=== PATIENT | female | born 1985 | race Caucasian/White ===

== ENCOUNTER 2017-03-08 11:07 | Emergency (ER) | payer BC ==
[2017-03-08 11:29] VITALS: RESP 16; TEMP 97
[2017-03-08] MEDS ORDERED: ORPHENADRINE 30 MG/ML 2 ML VIAL IM STA (12:39)
[2017-03-08] MEDS ORDERED: KETOROLAC 60 MG/2 ML VIAL IM STA (12:39)
--- NOTE | 2017-03-08 12:51 | ED ---
Back Pain HPI - General Chief Complaint: Back Pain/Injury Stated Complaint: lower back pain Time Seen by Provider: 03/08/17 12:13 Source: patient, RN notes reviewed Limitations: no limitations - History of Present Illness Initial Comments: 31-year-old female presents to the emergency Department chief complaint of low back pain. Patient states that she went down to picking tech today and she felt some irritation in her back when she went down to picking tech her 9-month-old and felt a pop in her back and since he the low back that radiates into the left forearm. Patient has a left lumbar bladder function with this. Patient states any real movement or certain twisting makes the pain worse. Patient states there hasn't been any fever chills nausea vomiting with this. He says any loss of bowel or bladder function. Patient states that she was concerned due to her worsening and continued pain so she thought that she should be evaluated. Patient denies any recent fever, chills, shortness of breath, chest pain, abdominal pain, nausea vomiting, numbness or tingling, dysuria or hematuria, constipation or diarrhea, headaches or visual changes, or any other current symptoms. - Related Data Home Medications Medication Instructions Recorded Confirmed Pnv with Ca,No.72/Iron/FA 1 tab PO DAILY 07/04/14 10/07/14 [ Plus Multivitamin Tab] Previous Rx's Medication Instructions Recorded Ibuprofen [Motrin] 600 mg PO Q6HR PRN #60 tab 05/14/16 Ibuprofen [Motrin] 600 mg PO Q6HR PRN #20 tab 03/08/17 Orphenadrine [Norflex] 100 mg PO Q12H #10 tablet.er 03/08/17 Allergies Allergy/AdvReac Type Severity Reaction Status Date / Time No Known Allergies Allergy Verified 03/08/17 11:25 Review of Systems ROS Statement: Those systems with pertinent positive or pertinent negative responses have been documented in the HPI. ROS Other: All systems not noted in ROS Statement are negative. Past Medical History Past Medical History: No Reported History History of Any Multi-Drug Resistant Organisms: None Reported Past Surgical History: No Surgical Hx Reported Past Anesthesia/Blood Transfusion Reactions: No Reported Reaction Past Psychological History: No Psychological Hx Reported Smoking Status: Never smoker Past Alcohol Use History: None Reported Past Drug Use History: None Reported - Past Family History Mother Family Medical History: No Reported History General Exam Limitations: no limitations General appearance: alert, in no apparent distress Head exam: Present: atraumatic, normocephalic, normal inspection ENT exam: Present: normal exam, mucous membranes moist Neck exam: Present: normal inspection. Absent: tenderness, meningismus, lymphadenopathy Respiratory exam: Present: normal lung sounds bilaterally. Absent: respiratory distress, wheezes, rales, rhonchi, stridor Cardiovascular Exam: Present: regular rate, normal rhythm, normal heart sounds. Absent: systolic murmur, diastolic murmur, rubs, gallop, clicks Extremities exam: Present: normal inspection, full ROM, normal capillary refill. Absent: tenderness, pedal edema, joint swelling, calf tenderness Back exam: Present: normal inspection, full ROM. Absent: tenderness Neurological exam: Present: alert, oriented X3 Psychiatric exam: Present: normal affect, normal mood Skin exam: Present: warm, dry, intact, normal color. Absent: rash Course Vital Signs 03/08/17 11:25 Temperature 97 F L Pulse Rate 93 Respiratory 16 Rate Blood Pressure 162/130 O2 Sat by Pulse 99 Oximetry Medical Decision Making - Medical Decision Making 31 yo female presents with cc of what appears to be a lumbar strain. At this time patient will be placed on motrin and norflex for home. We discussed return parameters, follow up and all questions. Patient stated that she understood and is in agreement with the plan. All questions have been answered. Patient will be discharged home. - Lab Data Lab Results 03/08/17 Range/Units 12:25 Urine HCG, Qual Not Detected (Not Detectd) - Radiology Data Radiology results: report reviewed, image reviewed Disposition Clinical Impression: Lumbar strain Disposition: HOME SELF-CARE Condition: Stable Instructions: Low Back Strain (ED), Lower Back Exercises (ED) Additional Instructions: Please use medication as discussed. Please follow up with family doctor if symptoms have not improved over the next two days. Please return to the emergency room if your symptoms increase or worsen or for any other concerns. Prescriptions: Ibuprofen [Motrin] 600 mg PO Q6HR PRN #20 tab PRN Reason: Pain Orphenadrine [Norflex] 100 mg PO Q12H #10 tablet.er Referrals: Linda Berman MD [STAFF PHYSICIAN] - 1-2 days Time of Disposition: 13:14
--- NOTE | 2017-03-08 13:13 | XR ---
EXAMINATION TYPE: XR lumbar spine 2 or 3V DATE OF EXAM: 03/08/2017 COMPARISON: NONE HISTORY: Pain TECHNIQUE: 3 views FINDINGS: Vertebra have normal spacing and alignment. Posterior elements are intact. Sacroiliac joint s are normal. IMPRESSION: Normal lumbar spine
[2017-03-08 13:26] VITALS: BP 97/47; PULSE 55
== END 2017-03-08 13:26 | disposition home or self-care (01) ==
LOC: EC 11:07
DX: S39.012A Strain of muscle, fascia and tendon of lower back, initial encounter (principal); X50.1XXA Overexertion from prolonged static or awkward postures, initial encounter
CPT/HCPCS: 81025; 72100; 99283; 96372 ×2; J2360; J1885

== ENCOUNTER → 2017-06-04 | Outpatient (CLI) | payer BC ==
[2017-06-04 12:55] LABS: CH 32.7; CHCM 33.9; HCT 41.4 % (34.0-46.0); HDW 2.72; HGB 14.1 gm/dL (11.4-16.0); Mean Platelet Volume 7.2; RBC 4.26 m/uL (3.80-5.40); RDW 12.6 % (11.5-15.5); WBC 6.8 k/uL (3.8-10.6)
[2017-06-04 13:05] LABS: Glucose 72 mg/dL (74-99); Non-African American GFR(MDRD) >60 (>60 ml/min/1.73 sqM)
[2017-06-04 19:02] LABS: Treponemal Ab Non-Reactive (Non-Reactive)
== END | disposition home or self-care (01) ==
LOC: LABWHC1 12:10
PROVIDERS: ATTEND Obstetrics & Gynecology
DX: O26.811 Pregnancy related exhaustion and fatigue, first trimester (principal); Z3A.00 Weeks of gestation of pregnancy not specified
CPT/HCPCS: 36415; 82565; 82947; 85027; 86762; 86780; 86850; 86900; 86901; 87340; 87390

== ENCOUNTER 2017-12-31 09:22 | Outpatient (CLI) | payer BC ==
[2017-12-31 12:13] VITALS: BP 121/68; PULSE 86; RESP 18; TEMP 97.7
--- NOTE | 2018-01-01 05:53 | P.MSEPDOC ---
Presenting Problems - Arrival Data Date of Arrival on Unit: 12/31/17 Time of Arrival on Unit: 09:22 Mode of Transport: Ambulatory - Complaint OB-Reason for Admission/Chief Complaint: Possible Onset of Labor Medical History - Information : 4 Para: 2 Term: 2 : 0 Abortions: Spontaneous or Elective: 1 Number of Living Children: 2 - Gestational Age Gestational Age by ANDRÉS (wks/days): 38 Weeks and 6 Days Review of Systems - Review of Systems Constitutional: No problems Breast: No problems ENT: No problems Cardiovascular: No problems Respiratory: No problems Gastrointestinal: No problems Genitourinary: No problems Musculoskeletal: No problems Neurological: No problems Skin: No problems Vital Signs - Temperature Temperature: 97.7 F Temperature Source: Temporal Artery Scan - Pulse Brachial Pulse Rate: 86 Pulse Assessment Method: Automatic Cuff - Respirations Respiratory Rate: 18 Oxygen Delivery Method: Room Air - Blood Pressure Right Arm Blood Pressure: 121/68 Blood Pressure Mean: 85 Blood Pressure Source: Automatic Cuff Medical Screen Scoring (Pre) - Cervical Exam Dilation: 1-3 cm = 1 Membranes: Intact - Uterine Contractions Frequency: > 5 minutes apart = 1 - Maternal Vital Signs Maternal Temperature: N/A Signs of Preeclampsia: N/A Maternal Respirations: N/A - Pain Assessment Pain Scale Used: Numeric (1 - 10) Pain Intensity: 3 - Maternal Trauma Maternal Trauma: N/A - Assessment Baseline FHR: 150 Heart Rate - NICHD Category: Category I (Normal) = 0 NST: Reactive - Total Score Total Score (Pre): 2 - Level of Risk Level of Risk: Low (0-5) Physician Notification (Pre) - Physician Notified Physician Notified Date: 12/31/17 Physician Notified Time: 10:15 Physician/Practitioner Notifed:: rachael Spoke With: rachael - Notification Comment Comment: may discharge home Disposition - Disposition OB Disposition: Triage, Discharge to home, Written follow up instructions reviewed Discharge Date: 12/31/17 Discharge Time: 10:25 I agree with the RN Medical Screening Exam: Yes Risk & Benefit of care provided described in d/c instruction: Yes Diagnosis: FALSE LABOR AT OR AFTER 37 COMPLETED WEEKS OF GESTATION
== END 2017-12-31 10:25 | disposition home or self-care (01) ==
LOC: FBPOP 09:22
PROVIDERS: ATTEND Obstetrics & Gynecology
DX: O47.1 False labor at or after 37 completed weeks of gestation (principal); Z3A.38 38 weeks gestation of pregnancy
CPT/HCPCS: 59025; 84112; 99213

== ENCOUNTER 2018-01-05 06:00 | Inpatient (IN) | payer BC ==
--- NOTE | 2018-01-04 16:08 | P.HPOB ---
History of Present Illness H&P Date: 01/04/18 Chief Complaint: Induction of labor This is a 32 y.o. female, 4, para 2, with an estimated date of confinement of 01/08/2018, estimated gestational age of 39-4/7 weeks, who presents to labor and delivery for induction of labor. She has been feeling frequent contractions and pressure. course has been essentially uncomplicated. labs: GC/Chlamydia-neg Hepatitis B surface antigen-neg HIV-NR Rubella-immune Syphilis antibody-neg Random glucose-72 Hemoglobin-14.1 Blood type-A+ Antibody screen-neg [id number]-tab 1 hr. GTT-118 GBS-neg OB Hx: . Hx 2 vaginal deliveries at term. 1 miscarriage. 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 Review of Systems Constitutional: Denies chills, Denies fever Eyes: denies blurred vision, denies pain Ears, nose, mouth and throat: Denies headache, Denies sore throat Cardiovascular: Denies chest pain, Denies shortness of breath Respiratory: Denies cough Gastrointestinal: Reports abdominal pain (irregular contractions) Genitourinary: Reports pelvic pain, Reports Musculoskeletal: Reports low back pain Neurological: Denies numbness, Denies weakness Psychiatric: Denies anxiety, Denies depression Past Medical History Past Medical History: No Reported History History of Any Multi-Drug Resistant Organisms: None Reported Past Surgical History: No Surgical Hx Reported Past Anesthesia/Blood Transfusion Reactions: No Reported Reaction Past Psychological History: No Psychological Hx Reported Smoking Status: Never smoker Past Alcohol Use History: None Reported Past Drug Use History: None Reported - Past Family History Mother Family Medical History: No Reported History Medications and Allergies Home Medications Medication Instructions Recorded Confirmed Type Pnv with Ca,No.72/Iron/FA 1 tab PO DAILY 07/04/14 12/31/17 History [ Plus Multivitamin Tab] Allergies Allergy/AdvReac Type Severity Reaction Status Date / Time No Known Allergies Allergy Verified 12/31/17 09:39 Exam Osteopathic Statement: *. No significant issues noted on an osteopathic structural exam other than those noted in the History and Physical/Consult. HEENT: Within normal limits Heart: Regular rate and rhythm Lungs: clear to auscultation bilaterally Abdomen: Cervix: 3 cm/60%/-2 heart tones: 140's by doppler Extremities: neg. Abi's. Assessment and Plan (1) 39 weeks gestation of Status: Acute Code(s): Z3A.39 - 39 WEEKS GESTATION OF SNOMED Code( s): 01594636 Plan: Proceed with oxytocin induction of labor. Expectant management.
[2018-01-05] MEDS ORDERED: OXYTOCIN 20 UNITS/1000 ML NS 1,000 ML IV SCH ×2 (06:32→13:00)
[2018-01-05] MEDS ORDERED: CARBOPROST TROMETHAMINE 250 MCG/ML 1 ML AMP IM PRN (06:32)
[2018-01-05] MEDS ORDERED: OXYTOCIN 10 UNIT/ML 1 ML VIAL IM PRN (06:32)
[2018-01-05] MEDS ORDERED: LIDOCAINE 1% (PF) 10 MG/ML (30 ML SDV) SQ PRN (06:32)
[2018-01-05] MEDS ORDERED: METHYLERGONOVINE 0.2 MG/ML 1 ML AMP IM PRN (06:32)
[2018-01-05] MEDS ORDERED: LIDOCAINE 1% 20 ML VIAL (10MG/ML) FOR IV START INTRADERMA PRN (06:32)
[2018-01-05] MEDS ORDERED: TERBUTALINE 1 MG/ML VIAL SQ PRN (06:32)
[2018-01-05] MEDS: LACTATED RINGERS 1,000 ML IV SCH ×2 (06:40→09:37)
[2018-01-05 06:58] LABS: Basophils % (A) 0 %; Eosinophils # (A) 0.1 k/uL (0-0.7); Eosinophils % (A) 1 %; HCT 34.2 % (34.0-46.0); HGB 11.7 gm/dL (11.4-16.0); Lymphocytes # (A) 1.7 k/uL (1.0-4.8); Lymphocytes % (A) 30 %; MCH 31.4 pg (25.0-35.0); MCHC 34.3 g/dL (31.0-37.0); MCV 91.6 fL (80.0-100.0); Mean Platelet Volume 8.2; Monocytes # (A) 0.3 k/uL (0-1.0); Monocytes % (A) 5 %; Neutrophils # (A) 3.5 k/uL (1.3-7.7); Neutrophils % (A) 61 %; Platelet Count 163 k/uL (150-450); Poikilocytosis Slight; RBC 3.73 m/uL (3.80-5.40); RDW 14.8 % (11.5-15.5); WBC 5.6 k/uL (3.8-10.6)
[2018-01-05 07:19] VITALS: BMI 28.3
[2018-01-05] MEDS ORDERED: fentaNYL (PF) 50 MCG/ML 5 ML AMP ONE (09:10)
[2018-01-05] MEDS ORDERED: SODIUM CHLORIDE 0.9% 100 ML BAG ONE (09:10)
[2018-01-05] MEDS ORDERED: BUPIVACAINE (PF) 0.25% 30 ML VIAL ONE (09:10)
[2018-01-05] MEDS ORDERED: BUPIVACAINE (PF) 0.25% 25 ML, fentaNYL (PF) 200 MCG in SODIUM CHLORIDE 0.9% 71 ML EPIDURAL ONE (09:37)
[2018-01-05] MEDS ORDERED: BENZOCAINE/MENTHOL SPRAY 1 GM/SPRAY AEROSOL TOPICAL PRN (12:57)
[2018-01-05] MEDS ORDERED: diphenhydrAMINE 50 MG/ML 1 ML VIAL IVP PRN ×2 (12:58)
[2018-01-05] MEDS ORDERED: HYDROCORTISONE 2.5% RECTAL CREAM 30 GM TUBE RECTAL PRN (12:58)
[2018-01-05] MEDS ORDERED: ACETAMINOPHEN TAB 325 MG TAB PO PRN (12:58)
[2018-01-05] MEDS ORDERED: LANOLIN CREAM 5 GM TUBE TOPICAL PRN (12:58)
[2018-01-05] MEDS ORDERED: SIMETHICONE 80 MG CHEWABLE PO PRN (12:58)
[2018-01-05] MEDS ORDERED: diphenhydrAMINE 25 MG CAP PO PRN (12:58)
[2018-01-05] MEDS ORDERED: diphenhydrAMINE 50 MG CAP PO PRN (12:58)
[2018-01-05] MEDS ORDERED: ZOLPIDEM 5 MG TAB PO PRN (12:58)
[2018-01-05] MEDS ORDERED: WITCH HAZEL 1 EACH MED..PAD TOPICAL PRN (12:58)
--- NOTE | 2018-01-05 13:25 | P.PROBDLV ---
Vaginal Delivery Note - . Vaginal Delivery Note: The patient progressed to complete dilation after oxytocin induction of labor and artificial rupture of membranes with clear fluid noted. She did receive epidural anesthesia. Once reaching complete dilation, she began pushing. 's head came to a crown. With one further push, the infant's head delivered across the perineum followed by the anterior shoulder. Nuchal cord times one was slightly tight and therefore doubly clamped and cut and reduced around the 's head. With one further push, the remainder the infant easily delivered and was placed on mother's abdomen. Nose and mouth were again bulb suctioned. Infant was taken to warmer for evaluation. A viable female infant was noted with scores of 8 at 1 minute and 9 at 5 minutes and infant weight of 8 lbs. 9 oz. Placenta delivered shortly thereafter, intact, with a three-vessel cord. Uterus contracted well after oxytocin was given and uterine massage was carried out. Inspection of the perineum revealed no perineal lacerations. Estimated blood loss was approximately 200 mL's. Both mother and are in stable condition.
[2018-01-05] MEDS: SENNOSIDES-DOCUSATE SODIUM 1 EACH TAB PO SCH (19:56)
[2018-01-05] MEDS: IBUPROFEN 600 MG TAB PO PRN (19:56)
[2018-01-06] MEDS: IBUPROFEN 600 MG TAB PO PRN ×2 (05:56→13:18)
--- NOTE | 2018-01-06 07:20 | P.DS ---
Providers Date of admission: 01/05/18 06:19 Expected date of discharge: 01/06/18 Attending physician: Yuki Partida Primary care physician: Stated None - Discharge Diagnosis(es) (1) 39 weeks gestation of Current Visit: No Status: Acute Hospital Course: This is a 32-year-old female 4 para 2 at 39-3/7 weeks who presented for induction of labor. She delivered vaginally a viable female infant on 2017 with scores of 8 at 1 minute and 9 at 5 minutes and weight of 8 lbs. 9 oz. Cortical cord times one was noted. Her course has been uncomplicated. She is bottle feeding. Lochia is decreasing. Pain is fairly well controlled with ibuprofen. Vital signs are stable. Abdomen soft with fundus firm and nontender. Extremities show negative Homans. Impression is status post vaginal delivery day #1. Plan is to discharge home today. Routine post instructions are given. She will be given a prescription for ibuprofen. She is advised to follow up in the office in 6 weeks for check. She is advised to call the office if she has any further questions or concerns prior to her appointment time. Procedures: Oxytocin induction of labor Spontaneous vaginal delivery of a viable female on 01/05/2018 Patient Condition at Discharge: Stable Plan - Discharge Summary New Discharge Prescriptions: New Ibuprofen [Motrin] 600 mg PO Q6HR PRN #60 tab PRN Reason: Mild Pain Or Fever >= 100.5 Continue Pnv with Ca,No.72/Iron/FA [ Plus Multivitamin Tab] 1 tab PO DAILY Discharge Medication List Pnv with Ca,No.72/Iron/FA [ Plus Multivitamin Tab] 1 tab PO DAILY [History] Ibuprofen [Motrin] 600 mg PO Q6HR PRN #60 tab 01/06/18 [Rx] Follow up Appointment(s)/Referral(s): Yuki Partida DO [Doctor of Osteopathic Medicine] - 6 Weeks Activity/Diet/Wound Care/Special Instructions: Instructions 1. Do not begin any exercise program for 3 weeks. 2. Do not resume sexual relations for 3 weeks or longer if uncomfortable. 3. You may take tub baths or showers at any time. 4. You may use tampons if desired after 3 weeks. 5. Keep the area of episiotomy (stitches) clean and dry. 6. If you are not nursing, wear a good fitting, supportive bra during the day and limit fluid intake for at least 1 week to prevent breast engorgement. 7. Call the office, [phone], within the next week to make appointment for your 6 week checkup if it has not already been made. 8. Report any of the following occurrences to the doctor promptly: a. Heavy, excessive bleeding b. Chills, fever c. Burning or frequency of urination d. Pain or redness and breasts if nursing e. Increasing pain or swelling in episiotomy (stitches). In addition to the above instructions, the following additional should be followed: 1. No heavy lifting or straining (exercising) until after 6 week checkup. 2. Keep abdominal incision clean and dry: You may wear a dressing if more comfortable. 3. Make office appointment for 10 days after going home or as instructed by her doctor. Discharge Disposition: HOME SELF-CARE
[2018-01-06 07:57] LABS: Basophils % (A) 0 %; Eosinophils # (A) 0.1 k/uL (0-0.7); Eosinophils % (A) 1 %; HGB 10.9 gm/dL (11.4-16.0); Lymphocytes # (A) 1.7 k/uL (1.0-4.8); Lymphocytes % (A) 21 %; MCH 30.9 pg (25.0-35.0); MCV 93.7 fL (80.0-100.0); Mean Platelet Volume 8.7; Monocytes # (A) 0.4 k/uL (0-1.0); Monocytes % (A) 5 %; Neutrophils # (A) 5.6 k/uL (1.3-7.7); Neutrophils % (A) 72 %; Platelet Count 145 k/uL (150-450); Poikilocytosis Slight; RBC 3.52 m/uL (3.80-5.40); RDW 14.6 % (11.5-15.5); WBC 7.8 k/uL (3.8-10.6)
[2018-01-06] MEDS: SENNOSIDES-DOCUSATE SODIUM 1 EACH TAB PO SCH (09:10)
[2018-01-06 09:12] VITALS: BP 110/70; PULSE 53; RESP 17; TEMP 97.7
== END 2018-01-06 13:15 | disposition home or self-care (01) | DRG 775 ==
LOC: 4FBP 06:19
PROVIDERS: ADMIT Obstetrics & Gynecology; ATTEND Obstetrics & Gynecology
PROC: 10907ZC Drainage of Amniotic Fluid, Therapeutic from Products of Conception, Via Natural or Artificial Opening (ICD-10-PCS; principal; 2018-01-05)
PROC: 10E0XZZ Delivery of Products of Conception, External Approach (ICD-10-PCS; 2018-01-05)
PROC: 3E033VJ Introduction of Other Hormone into Peripheral Vein, Percutaneous Approach (ICD-10-PCS; 2018-01-05)
PROC: 3E0R3NZ Introduction of Analgesics, Hypnotics, Sedatives into Spinal Canal, Percutaneous Approach (ICD-10-PCS; 2018-01-05)
PROC: 00HU33Z Insertion of Infusion Device into Spinal Canal, Percutaneous Approach (ICD-10-PCS; 2018-01-05)
DX: O69.1XX0 Labor and delivery complicated by cord around neck, with compression, not applicable or unspecified (principal); K21.9 Gastro-esophageal reflux disease without esophagitis; O99.62 Diseases of the digestive system complicating childbirth; Z3A.39 39 weeks gestation of pregnancy; Z37.0 Single live birth; Z87.59 Personal history of other complications of pregnancy, childbirth and the puerperium
CPT/HCPCS: 85025; 88307

== ENCOUNTER 2019-03-29 06:30 | Day surgery (SDC) | payer BC ==
[2019-03-23 15:12] VITALS: BMI 23.1
--- NOTE | 2019-03-28 13:02 | P.HPOB ---
History of Present Illness H&P Date: 03/28/19 Chief Complaint: Menorrhagia with irregular cycle This is a 33-year-old female 4 para 3 who presents for dilation and curettage with hysteroscopy and NovaSure endometrial ablation secondary to menorrhagia with irregular cycle. She complains of heavy irregular menses that been occurring for over a year now. Her menses last anywhere from 5-8 days and occasional spotting going on after her menses. She has to change tampons every hour for the first 4 days of her cycle. Her menses are occurring every 3-4 weeks. She would like definitive surgical treatment to control her menses. Her has had a vasectomy. I look ultrasound showed a uterus measuring 9.2 x 4.8 x 3.5 cm with an endometrial stripe thickness of 10 mm. The right ovary had a small hemorrhagic cyst measuring 2.3 cm and the left ovary appeared normal. Obstetrical history: . History of 3 vaginal deliveries. History of 1 miscarriage. Gynecologic history: No history of sexual transmitted diseases. Her has had a vasectomy. Social history: She is . She works as a middle school science teacher. Review of Systems Constitutional: Denies chills, Denies fever Eyes: denies blurred vision, denies pain Ears, nose, mouth and throat: Denies headache, Denies sore throat Cardiovascular: Denies chest pain, Denies shortness of breath Respiratory: Denies cough Gastrointestinal: Denies abdominal pain, Denies diarrhea, Denies nausea, Denies vomiting Genitourinary: Reports menorrhagia Menstruation: Reports menses variable, Reports period heavy Musculoskeletal: Denies myalgias Integumentary: Denies pruritus, Denies rash Neurological: Denies numbness, Denies weakness Psychiatric: Denies anxiety, Denies depression Endocrine: Denies fatigue, Denies weight change Hematologic/Lymphatic: Reports easy bruising Past Medical History Past Medical History: No Reported History Additional Past Medical History / Comment(s): MENSTRUAL PERIODS FREQUENT AND HEAVY. History of Any Multi-Drug Resistant Organisms: None Reported Past Surgical History: No Surgical Hx Reported Past Anesthesia/Blood Transfusion Reactions: No Reported Reaction Additional Past Anesthesia/Blood Transfusion Reaction / Comment(s): EPIDURAL WITH CHILDBIRTH- FELT LIGHTHEADED. Past Psychological History: ADD/ADHD Smoking Status: Never smoker Past Alcohol Use History: Occasional Past Drug Use History: None Reported - Past Family History Mother Family Medical History: Thyroid Disorder Father Family Medical History: Cancer Additional Family Medical History / Comment(s): MELANOMA, BONE CANCER Medications and Allergies Home Medications Medication Instructions Recorded Confirmed Type No Known Home Medications 03/23/19 03/23/19 History Allergies Allergy/AdvReac Type Severity Reaction Status Date / Time No Known Allergies Allergy Verified 03/23/19 14:54 Exam Osteopathic Statement: *. No significant issues noted on an osteopathic structural exam other than those noted in the History and Physical/Consult. HEENT: Within normal limits Heart: Regular rate and rhythm Lungs: Clear to auscultation bilaterally Abdomen: Soft, nontender Pelvic exam: Uterus is anteverted, nontender, with no adnexal masses or tenderness noted. Extremities: Negative Homans Assessment and Plan (1) Menorrhagia with irregular cycle Status: Acute Code(s): N92.1 - EXCESSIVE AND FREQUENT MENSTRUATION WITH IRREGULAR CYCLE SNOMED Code(s): 607382913 Plan: Proceed with dilation and curettage with hysteroscopy and NovaSure endometrial ablation. I have discussed the risks, benefits, and alternative therapies for the above- mentioned procedure and for both sedation/anesthesia as well as necessary blood products administration, if indicated, as they pertain to this patient. The patient has indicated her understanding and acceptance of the risks and procedures discussed.
[~2019-03-29 06:30] MED LIST: DEXAMETHASONE SOD PHOSPHATE 10 MG/ML 1 ML VIAL IV ONE; HYDROmorphone 0.5 MG/0.5 ML SYRINGE IVP PRN; LACTATED RINGERS 1,000 ML IV SCH; MIDAZOLAM 2 MG/2 ML VIAL IV PRN; ONDANSETRON 4 MG/2 ML VIAL IVP ONE; SCOPOLAMINE 1.5MG/72HR PATCH TRANSDERM ONE
[2019-03-29 06:54] VITALS: RESP 16; TEMP 97
[2019-03-29] MEDS ORDERED: LIDOCAINE 1% 20 ML VIAL (10MG/ML) FOR IV START INTRADERMA ONE (06:54)
[2019-03-29] MEDS ORDERED: MIDAZOLAM 2 MG/2 ML VIAL ONE (07:24)
[2019-03-29] MEDS ORDERED: PROPOFOL 10 MG/ML 20 ML VIAL IV ONE (07:24)
[2019-03-29] MEDS ORDERED: KETOROLAC 30 MG/ML 1 ML VIAL ONE (07:24)
[2019-03-29] MEDS ORDERED: LIDOCAINE 1% INJ 10MG/ML (20 ML MDV) ONE (07:24)
[2019-03-29] MEDS ORDERED: fentaNYL (PF) 50 MCG/ML 2 ML AMP ONE (07:24)
--- NOTE | 2019-03-29 07:55 | P.OP ---
Date of Procedure: 03/29/19 Preoperative Diagnosis: Menorrhagia with irregular cycle Postoperative Diagnosis: Same Procedure(s) Performed: Dilation and curettage with hysteroscopy and NovaSure endometrial ablation Anesthesia: PATTIE Surgeon: Yuki Partida Estimated Blood Loss (ml): 5 Pathology: other (Endometrial curettings) Condition: stable Disposition: same day Indications for Procedure: This is a 33-year-old female 4 para 3 who presents for dilation and curettage with hysteroscopy and NovaSure endometrial ablation secondary to menorrhagia with irregular cycle. She complains of heavy irregular menses that been occurring for over a year now. Her menses last anywhere from 5-8 days and occasional spotting going on after her menses. She has to change tampons every hour for the first 4 days of her cycle. Her menses are occurring every 3-4 weeks. She would like definitive surgical treatment to control her menses. Her has had a vasectomy. I look ultrasound showed a uterus measuring 9.2 x 4.8 x 3.5 cm with an endometrial stripe thickness of 10 mm. The right ovary had a small hemorrhagic cyst measuring 2.3 cm and the left ovary appeared normal. Operative Findings: Uterus is anteverted, sounded to 9 cm. Cervix is sounded to 3 cm. Upon hysteroscopy, a relatively dyssynchronous endometrial pattern was noted. Both tubal ostia are visualized. A moderate amount of endometrial curettings were obtained. Description of Procedure: The patient is taken to the operating room. She is placed in the dorsal lithotomy position after general anesthesia was given. She is prepped and draped in the normal sterile fashion. Bladder is drained with a catheter and then removed. Pelvic exam is performed under anesthesia. Uterus is found to be anteverted with no adnexal masses. She is placed in slight Trendelenburg position. A right angle retractor is used to visualize the cervix. The anterior lip of the cervix is grasped with a single-tooth tenaculum. Cervix is sounded to 3 cm. Uterus is sounded to 9 cm. Cervix is gently dilated with Grossman dilators until a hysteroscope could be passed. Hysteroscopy is performed using normal saline. The above noted findings are noted. Next a polyp forceps is introduced. And a minimal amount of tissue was obtained. Next medium-sized size sharp curette was placed. A moderate amount of endometrial curettings were obtained. Next NovaSure array was inserted into the endometrial cavity. Length was set at 6 cm and width was determined to be 3.9 cm. Next cavity assessment was completed and passed on the first try. Next NovaSure array was fired at 129 W for 84 seconds. Next the array was removed, inspected and then discarded. Next the hysteroscope was reinserted. Uniform charring was noted. Pictures were taken. Hysteroscope was removed. Single-tooth tenaculum was removed from the anterior lip of the cervix. Minimal bleeding was noted. All other instruments removed from the vagina. Sponge counts were correct. Patient is taken to recovery room in stable condition.
[2019-03-29] MEDS ORDERED: LACTATED RINGERS 1,000 ML IV ONE ×2 (08:25)
[2019-03-29 10:16] VITALS: BP 107/57; PULSE 59
== END 2019-03-29 10:39 | disposition home or self-care (01) ==
LOC: OR 06:30
PROVIDERS: ATTEND Obstetrics & Gynecology
DX: N92.1 Excessive and frequent menstruation with irregular cycle (principal); F90.9 Attention-deficit hyperactivity disorder, unspecified type; Z79.899 Other long term (current) drug therapy; Z80.8 Family history of malignant neoplasm of other organs or systems; Z83.49 Family history of other endocrine, nutritional and metabolic diseases
CPT/HCPCS: 58563; 81025; 88305; J2250; J1100; J2405; J2001; J3010; J1885; J2704; J1170

== ENCOUNTER → 2019-07-05 | Outpatient (CLI) | payer BC ==
--- NOTE | 2019-07-05 11:07 | CT ---
EXAMINATION TYPE: CT brain wo con DATE OF EXAM: 07/05/2019 COMPARISON: NONE HISTORY: headache and eye twitching CT DLP: 796 mGycm. Automated Exposure Control for Dose Reduction was Utilized. TECHNIQUE: CT scan of the head is performed without contrast. FINDINGS: There is no acute intracranial hemorrhage, mass effect, or midline shift identified. No suspicious extra-axial fluid collection. The ventricles and sulci are within normal limits in size. The globes are intact. Orbits are symmetric. Extraocular muscles are also symmetric. No discrete intr aconal or extraconal mass is seen. Lenses are in place. There are are integrated secretions of the alonzo perior ethmoid and left frontal sinuses. Remaining visualized sinuses are clear. Mastoid air cells ar e well aerated. IMPRESSION: 1. No acute intracranial hemorrhage, mass effect, or midline shift is seen. 2. Mild left frontal and superior ethmoid sinusitis. 3. Globes are symmetric and lenses are in place. No evidence of intraconal or extraconal mass. No pit uitary enlargement nor impression the optic chiasm.
--- NOTE | 2019-07-05 15:16 | XR ---
Sinus HISTORY: Localized edema, headache 4 views of the sinuses No air-fluid levels to suggest acute sinusitis. Bone mineralization is maintained. Orbits are intact. No radiopaque foreign body evident. No fracture or dislocation. Mastoid air cells appear well aerate d. IMPRESSION: Correlate for point tenderness to assess for sinusitis, CT may be of increased sensitivit y.
== END | disposition home or self-care (01) ==
LOC: RADCTMAIN 10:22
PROVIDERS: ATTEND Family Medicine
DX: J32.2 Chronic ethmoidal sinusitis (principal); R60.0 Localized edema
CPT/HCPCS: 70220; 70450

== ENCOUNTER 2022-05-25 14:01 | Emergency (ER) | payer BC, OTHER ==
[2022-05-25 14:42] VITALS: RESP 16
--- NOTE | 2022-05-25 15:33 | ED ---
Skin/Abscess/FB HPI - General Chief complaint: Skin/Abscess/Foreign Body Stated complaint: Lump on breast,sent by doc Time Seen by Provider: 05/25/22 15:24 Source: patient, RN notes reviewed, old records reviewed Mode of arrival: ambulatory Limitations: no limitations - History of Present Illness Initial comments: This is a well-appearing 36-year-old female that presents with a mass to the left breast for approximately one month. Patient states started off as a small bump has slowly progressed in size. Called her [facility] who recommended she come to the emergency room for evaluation. She denies any fevers. No nausea vomiting diarrhea or abdominal pain. She does have a history of breast implants 3 years ago. No other medical history. MD complaint: lesion -: month(s) (1) Location: chest (left breast 9o'clock approx 2cm irregular nodular) Severity: mild Severity scale (1-10): 0 Associated symptoms: denies other symptoms Treatments Prior to Arrival: none - Related Data Home Medications Medication Instructions Recorded Confirmed Dextroamphetamine/Amphetamine 10 mg PO QAM 03/29/19 03/29/19 [Adderall Xr] Allergies Allergy/AdvReac Type Severity Reaction Status Date / Time No Known Allergies Allergy Verified 05/25/22 14:42 Review of Systems ROS Statement: Those systems with pertinent positive or pertinent negative responses have been documented in the HPI. ROS Other: All systems not noted in ROS Statement are negative. Past Medical History Past Medical History: No Reported History Additional Past Medical History / Comment(s): MENSTRUAL PERIODS FREQUENT AND HEAVY. History of Any Multi-Drug Resistant Organisms: None Reported Past Surgical History: No Surgical Hx Reported Past Anesthesia/Blood Transfusion Reactions: No Reported Reaction Additional Past Anesthesia/Blood Transfusion Reaction / Comment(s): EPIDURAL WITH CHILDBIRTH- FELT LIGHTHEADED. Past Psychological History: ADD/ADHD Past Alcohol Use History: Occasional Past Drug Use History: None Reported - Past Family History Mother Family Medical History: Thyroid Disorder Father Family Medical History: Cancer Additional Family Medical History / Comment(s): MELANOMA, BONE CANCER General Exam Limitations: no limitations General appearance: alert, in no apparent distress Eye exam: Present: normal appearance Respiratory exam: Absent: respiratory distress, accessory muscle use Cardiovascular Exam: Present: regular rate GI/Abdominal exam: Present: soft. Absent: distended, tenderness, rigid Neurological exam: Present: alert, oriented X3 Psychiatric exam: Present: normal affect, normal mood Skin exam: Present: warm, dry, intact, normal color, other (Approximately 2 cm lesion left breast at 9:00, no erythema or drainage) Course Vital Signs 05/25/22 05/25/22 14:39 18:03 Temperature 98 F 98.1 F Pulse Rate 68 60 Respiratory 16 16 Rate Blood Pressure 122/88 126/77 O2 Sat by Pulse 99 100 Oximetry Medical Decision Making - Medical Decision Making Patient presents with left breast lump for one month progressing in size. Denies any fevers. No other lesions noted to either breast. States her [facility] recommended she come to the emergency room for ultrasound. I have a low suspicion that this is infectious etiology as there is no evidence of erythema and patient is minimally tender. Denies any fevers, no nausea vomiting or diarrhea. She does have a history of breast implants. Ultrasound was completed in the emergency room however patient needed to leave before results from the radiologist were dictated. I did advise her to follow up with Dr. Partida and Dr. Fragoso this week. She is agreeable to this plan of care. Case was also discussed with Dr. Duffy who was also agreeable to this plan of care. After patient's discharge I did speak with Dr. Stringer the radiologist who could not be definitive as to whether this was a mass versus abscess. Disposition Clinical Impression: Breast mass Disposition: HOME SELF-CARE Condition: Good Instructions (If sedation given, give patient instructions): Breast Mass (ED) Additional Instructions: Follow-up with Dr. Partida and/or your primary care doctor tomorrow for ultrasound results. Return if any new or concerning symptoms including fever, increased pain or drainage. Is patient prescribed a controlled substance at d/c from ED?: No Referrals: Saad Medina MD [Primary Care Provider] - 1-2 days Michelle Kramer MD [STAFF PHYSICIAN] - 1-2 days Yuki Partida DO [Doctor of Osteopathic Medicine] - 1-2 days Time of Disposition: 17:56
[2022-05-25 18:03] VITALS: BP 126/77; PULSE 60; TEMP 98.1
== END 2022-05-25 18:03 | disposition home or self-care (01) ==
LOC: EC 14:01
DX: N63.20 Unspecified lump in the left breast, unspecified quadrant (principal)
CPT/HCPCS: 99283

== ENCOUNTER → 2022-05-29 | Outpatient (CLI) | payer BC, OTHER ==
--- NOTE | 2022-05-29 09:36 | MM ---
Reason for Exam: Clinical finding. Baseline mammogram. Indicated Problems: Lump or thickening of the left side. Patient History: Menarche at age 13. First Full-Term at age 30. Late child-bearing (after 29). 2018, Bilateral Implants. Paternal aunt had breast cancer. Paternal aunt had breast cancer. Paternal aunt had breast cancer. Paternal aunt had breast cancer. Paternal half sister had breast cancer, age 34. Risk Values: Romina 5 year model risk: 0.5%. NCI Lifetime model risk: 12.6%. Prior Study Comparison: Patient's first Mammogram. No prior studies available for comparison. Tissue Density: The breast tissue is heterogeneously dense. This may lower the sensitivity of mammography. Findings: There is a focal asymmetry measuring 2.6 x 1.9 cm at the level of the marked palpable abnormality left breast lower inner aspect. Bilateral breast prostheses are present. No suspicious abnormality within the right breast. Overall Assessment: Suspicious, BI-RAD 4 Management: Ultrasound Core Biopsy of the left breast. A negative mammogram report should not preclude additional follow up of suspicious palpable abnormalities. Patient should continue monthly self breast exam. A clinical breast exam by your physician is recommended on an annual basis and results should be correlated with mammographic findings. Electronically signed and approved by: Steve Mcknight D.O. Radiologis
== END | disposition home or self-care (01) ==
LOC: RADMAMWWP 08:14
PROVIDERS: ATTEND Family Medicine
DX: R92.8 Other abnormal and inconclusive findings on diagnostic imaging of breast (principal)
CPT/HCPCS: 77062; 77066

== ENCOUNTER → 2022-06-03 | Day surgery (SDC) | payer BC, OTHER ==
--- NOTE | 2022-06-09 09:07 | USB ---
Risk Values: Romina 5 year model risk: 0.5%. NCI Lifetime model risk: 12.6%. Prior Study Comparison: 05/29/2022 Bilateral MG 3D diag mammo imp w/cad SUZANNE, PH. Pathology Description: Location: 8 o'clock, lower inner quadrant. Needle Type: Celero Cores: 3 Skin Nicks: 1 Gauge: 12 The procedure of ultrasound guided core biopsy was explained to the patient. Benefits, alternatives, and risks were discussed. An informed consent was then obtained. The patient was placed in supine positioning for imaging and for the procedure. Preprocedure ultrasound redemonstrates oval heterogeneous hypoechoic mass at 8-9 o'clock position 8 cm distance from nipple abutting the breast implant along the deep margin. Some superficial vascularity is seen. The overlying skin was prepped and draped in usual sterile fashion. Lidocaine is used as anesthetic into the skin and subcutaneous tissue. Lidocaine with epinephrine is used as anesthetic in the deeper tissue up to area of concern in the left breast. A navya was made with surgical scalpel. Under ultrasound guidance, a vacuum assisted biopsy gun device was used to obtain 3 core samples. Following this, a biopsy clip was attempted to be left in lesion but it was difficult to penetrate. Attempt to deploy a clip along the periphery was unsuccessful as clip after removing clip device was lodged in the tip of the device. Clip deployment was deferred given extreme difficulty of penetrating hard mobile mass to deploy the clip within the lesion. I would advise repeat attempt if pathology results are malignant and patient having chemotherapy prior to excision. Otherwise excision with needle localization could be performed with ultrasound guidance due to well-visualized lesion. The patient tolerated the procedure well without any immediate complication. The patient was kept in the radiology department for short stay after the procedure and then discharged home in stable condition. Impression: Successful ultrasound guided core biopsy of area of concern in the left breast, full pathology results to follow. Low to intermediate index of suspicion. A fibroadenoma is favored. Pathology Results: Result: Malignant, Invasive ductal carcinoma. LEFT BREAST, EIGHT O'CLOCK, ULTRASOUND GUIDED NEEDLE CORE BIOPSY: Invasive poorly differentiated ductal carcinoma (Grade 3). See Surgical Pathology Cancer Case Summary and Comment. Overall Assessment: Malignant Management: Surgical Consultation of the left breast. Electronically signed and approved by: Dio Lutz M.D.
== END ==
LOC: RADUSWWP 12:43
PROVIDERS: ATTEND Surgery
DX: D05.12 Intraductal carcinoma in situ of left breast (principal)
CPT/HCPCS: 88305; 88341; 88342

== ENCOUNTER 2022-06-20 07:32 | Day surgery (SDC) | payer BC, OTHER ==
[2022-06-19 09:55] VITALS: BMI 23.9
--- NOTE | 2022-06-19 16:17 | P.GSHP ---
History of Present Illness H&P Date: 06/19/22 Chief Complaint: Left breast cancer 36-year-old female seen in the office after recent diagnosis of left-sided breast cancer. Patient is being treated with neoadjuvant chemotherapy by oncology. Presenting to the hospital for Port-A-Cath placement. No history of previous catheter. Timing to initiate chemotherapy is yet to be determined. Past Medical History Past Medical History: Cancer Additional Past Medical History / Comment(s): left breast cancer-new diagnosis, pt states breast biopsy site has scab., states very prone to canker sores- multiple sores at a time. History of Any Multi-Drug Resistant Organisms: None Reported Past Surgical History: Breast Surgery, Uterine Ablation Additional Past Surgical History / Comment(s): bilat breast silicone implants 2018, left breast bx Past Anesthesia/Blood Transfusion Reactions: Previous Problems w/ Anesthesia, Motion Sickness, Postoperative Nausea & Vomiting (PONV) Additional Past Anesthesia/Blood Transfusion Reaction / Comment(s): EPIDURAL WITH CHILDBIRTH- FELT LIGHTHEADED and PONV Past Psychological History: ADD/ADHD, Anxiety Additional Psychological History / Comment(s): current anxiety with cancer diagnosis. Smoking Status: Former smoker Past Alcohol Use History: Occasional Additional Past Alcohol Use History / Comment(s): smoked in college Past Drug Use History: None Reported - Past Family History Mother Family Medical History: Rheumatoid Arthritis (RA), Thyroid Disorder Father Family Medical History: Cancer Additional Family Medical History / Comment(s): MELANOMA, BONE CANCER Sister(s) Family Medical History: Cancer Additional Family Medical History / Comment(s): half sister had breast cancer also. Medications and Allergies Home Medications Medication Instructions Recorded Confirmed Type Dextroamphetamine/Amphetamine 15 mg PO DAILY 06/19/22 06/19/22 History [Adderall] Loratadine [Claritin] 10 mg PO DAILY 06/19/22 06/19/22 History Multivit with Calcium,Iron,Min 1 each PO DAILY 06/19/22 06/19/22 History [Women's Multivitamin] Allergies Allergy/AdvReac Type Severity Reaction Status Date / Time No Known Allergies Allergy Verified 06/19/22 09:29 Surgical - Exam Physical exam: General: Well-developed, well-nourished HEENT: Normocephalic, sclerae nonicteric Abdomen: Nontender, nondistended Extremities: No edema Neuro: Alert and oriented Left breast lower inner quadrant mass noted Assessment and Plan (1) Breast cancer, left Narrative/Plan: 36-year-old female with recent diagnosis of left-sided breast cancer. Patient to begin neoadjuvant chemotherapy in the near future. We'll proceed with Port -A-Cath placement at this time. Risks of bleeding, infection, DVT, pneumothorax, catheter malfunction, anesthesia related complications were discussed. The patient understands and wishes to proceed. Status: Acute Code(s): C50.912 - MALIGNANT NEOPLASM OF UNSPECIFIED SITE OF LEFT FEMALE BREAST SNOMED Code(s): 590273948
[~2022-06-20 07:32] MED LIST changes: -DEXAMETHASONE SOD PHOSPHATE 10 MG/ML 1 ML VIAL IV ONE; +DEXAMETHASONE SOD PHOSPHATE 4 MG/ML 1 ML VIAL IV ONE; +Pre Op ABX Message 1 EACH MISC MISCELLANE ONE; +SCOPOLAMINE 1 MG/72 HR PATCH TRANSDERM ONE; -SCOPOLAMINE 1.5MG/72HR PATCH TRANSDERM ONE
[2022-06-20] MEDS ORDERED: HEPARIN SODIUM,PORCINE 100 UNIT/ML 5 ML VIAL IV ONE ×2 (08:09→09:29)
[2022-06-20] MEDS ORDERED: LIDOCAINE (PF) 10 MG/ML 2 ML VIAL SQ ONE ×3 (08:09→09:16)
[2022-06-20] MEDS ORDERED: HEPARIN SODIUM,PORCINE/PF 5,000 UNIT/0.5 ML SYRINGE SQ ONE (08:17)
[2022-06-20] MEDS ORDERED: HEPARIN SODIUM,PORCINE/PF 5,000 UNIT/0.5 ML SYRINGE SQ STA (08:38)
[2022-06-20] MEDS ORDERED: diphenhydrAMINE 50 MG/ML 1 ML VIAL ONE (08:50)
[2022-06-20] MEDS ORDERED: MIDAZOLAM 2 MG/2 ML VIAL ONE (08:50)
[2022-06-20] MEDS ORDERED: PROPOFOL 10 MG/ML 20 ML VIAL IV ONE (08:50)
[2022-06-20] MEDS ORDERED: fentaNYL (PF) 50 MCG/ML 2 ML AMP ONE (08:50)
[2022-06-20] MEDS ORDERED: LIDOCAINE 2% INJ 20 MG/ML (2 ML VIAL) ONE (08:50)
[2022-06-20] MEDS ORDERED: SODIUM CHLORIDE 0.9% 100 ML with ceFAZolin 2,000 MG IV ONE ×2 (08:54)
--- NOTE | 2022-06-20 09:52 | FL ---
Fluoroscopy HISTORY: Port-A-Cath placement 7 seconds fluoroscopy time supplied to the referring clinician. 1 intraoperative C-arm images docume nt the procedure. See dictated report from general surgery.
[2022-06-20 09:57] VITALS: TEMP 97
[2022-06-20] MEDS ORDERED: NALOXONE 0.4 MG/ML 1 ML VIAL IV PRN (10:03)
[2022-06-20] MEDS ORDERED: traMADol 50 MG TAB PO PRN (10:03)
--- NOTE | 2022-06-20 10:05 | P.OP ---
Date of Procedure: 06/20/22 Procedure(s) Performed: PREOPERATIVE DIAGNOSIS: Left breast cancer POSTOPERATIVE DIAGNOSIS: Same PROCEDURE: Port-A-Cath placement with fluoroscopic and ultrasound guidance SURGEON: Leigh EBL: Minimal ANESTHESIA: General COMPLICATIONS: None OPERATIVE PROCEDURE: Patient was brought and placed on the operative table in the supine position. The patient was sedated per anesthesia that time. The chest and neck were prepped and draped in usual sterile fashion. The ultrasound probe was used to identify the location of the right internal jugular vein. The skin was localized with lidocaine. The Seldinger needle was advanced into the IJ under ultrasound guidance. The wire was advanced through the needle under fluoroscopic guidance into the superior vena cava. A port pocket was created in the right infraclavicular location. The catheter was tunneled from the wire entrance site to the port pocket. The port was then connected to the catheter. The dilator introducer was threaded over the guidewire. The guidewire and dilator were then removed. The catheter was advanced through the introducer and introducer was then removed. The tip was seen to be in the right atrial junction via fluoroscopy. A picture of the radiograph showing the tip at the radial digital junction was taken. Port was flushed with both saline and a Hep- Lock solution. There was good flow both in and out of the port. The port was sutured in underlying tissues using 3-0 silk sutures. The subcutaneous tissues were reapproximated using 3-0 Vicryl sutures and the skin at both locations using 4-0 Monocryl sutures. Skin glue and sterile dressings then applied. DISPOSITION: Stable to recovery room
--- NOTE | 2022-06-20 10:21 | XR ---
EXAMINATION TYPE: XR chest 1V portable DATE OF EXAM: 06/20/2022 10:13 AM COMPARISON: Chest radiographs from TECHNIQUE: XR chest 1V portable Portable AP radiograph of the chest. CLINICAL INDICATION:Female, 36 years old with history of port placement; FINDINGS: Lungs/Pleura: There is no evidence of pleural effusion, focal consolidation, or pneumothorax. Pulmonary vascularity: Unremarkable. Heart/mediastinum: Cardiomediastinal silhouette is unremarkable. Musculoskeletal: No acute osseous pathology. Lines/Tubes: [id number]-[id number] projecting over the right hemithorax with distal tip at the cavoatrial junction. IMPRESSION: No acute cardiopulmonary disease/process.
[2022-06-20 11:03] VITALS: BP 109/73; PULSE 59; RESP 18
== END 2022-06-20 11:39 ==
LOC: OR 07:32
PROVIDERS: ATTEND Surgery
DX: C50.912 Malignant neoplasm of unspecified site of left female breast (principal); F41.9 Anxiety disorder, unspecified; F10.90 Alcohol use, unspecified, uncomplicated; F90.9 Attention-deficit hyperactivity disorder, unspecified type; K91.0 Vomiting following gastrointestinal surgery; Z87.891 Personal history of nicotine dependence; Z98.891 History of uterine scar from previous surgery; Z80.8 Family history of malignant neoplasm of other organs or systems; Z82.61 Family history of arthritis; Z83.49 Family history of other endocrine, nutritional and metabolic diseases; Z79.899 Other long term (current) drug therapy; T75.3XXD Motion sickness, subsequent encounter
CPT/HCPCS: 81025; 77001; 71045; 36561; 76937; C1788; J2250; J1200; J2001 ×2; J1642; J1100; J2405; J0690; J3010; J2704; J1644

== ENCOUNTER → 2022-08-27 | Outpatient (CLI) | payer BC ==
--- NOTE | 2022-08-27 15:34 | MR ---
EXAMINATION TYPE: MR brain wo/w con DATE OF EXAM: 08/27/2022 COMPARISON: None HISTORY: Blurry Vision and Dizziness CONTRAST: Performed utilizing 6ml mL intravenous Gadavist gadolinium contrast. TECHNIQUE: Multiplanar, multiecho imaging on a 3.0 Christianne magnet is performed through the brain. Stud y is performed within 24 hours of arrival to the hospital. The craniovertebral junction is normal. The pituitary is normal. Diffusion-weighted imaging is performed. No abnormal hyperintensity is present to suggest an acute i ntracranial infarct or acute ischemic change. Signal through the brain appears normal. Ventricles and sulci are appropriate for the patient age. No abnormal enhancement is evident. IMPRESSIONS: 1. No suspicious abnormality pre and postcontrast MRI brain
== END | disposition home or self-care (01) ==
LOC: RADMRIMAIN 13:14
PROVIDERS: ATTEND Internal Medicine Hematology & Oncology
DX: C50.319 Malignant neoplasm of lower-inner quadrant of unspecified female breast (principal); H53.8 Other visual disturbances; R42 Dizziness and giddiness
CPT/HCPCS: 70553; A9585

== ENCOUNTER 2023-10-08 12:23 | Day surgery (SDC) | payer BC ==
[2023-10-07 12:14] VITALS: BMI 25.7
[~2023-10-08 12:23] MED LIST changes: -DEXAMETHASONE SOD PHOSPHATE 4 MG/ML 1 ML VIAL IV ONE; +HEPARIN SODIUM,PORCINE 5,000 UNIT/ML 1 ML VIAL SQ PRN; -LACTATED RINGERS 1,000 ML IV SCH; +LIDOCAINE 1% (10MG/ML) FOR IV START INTRADERMA PRN; -ONDANSETRON 4 MG/2 ML VIAL IVP ONE; -Pre Op ABX Message 1 EACH MISC MISCELLANE ONE; -SCOPOLAMINE 1 MG/72 HR PATCH TRANSDERM ONE
[2023-10-08] MEDS: LACTATED RINGERS 1,000 ML IV SCH (13:00)
--- NOTE | 2023-10-08 13:05 | P.GSHP ---
History of Present Illness H&P Date: 10/08/23 Chief Complaint: Breast cancer 38-year-old female with prior diagnosis of breast cancer. Underwent Port-A-Cath placement for chemotherapy. Did well with her port. Here today for port removal. Past Medical History Past Medical History: Cancer, Thyroid Disorder Additional Past Medical History / Comment(s): Hx left breast cancer. History of Any Multi-Drug Resistant Organisms: None Reported Past Surgical History: Breast Surgery, Uterine Ablation Additional Past Surgical History / Comment(s): Bilateral breast silicone implants 2018, left breast biopsy, [id number] placement, double mastectomy with reconstruction. Past Anesthesia/Blood Transfusion Reactions: Previous Problems w/ Anesthesia, Motion Sickness, Postoperative Nausea & Vomiting (PONV) Additional Past Anesthesia/Blood Transfusion Reaction / Comment(s): EPIDURAL WITH CHILDBIRTH- FELT LIGHTHEADED and PONV. Past Psychological History: ADD/ADHD, Anxiety Smoking Status: Former smoker Past Alcohol Use History: Occasional Additional Past Alcohol Use History / Comment(s): Smoked in College only. Past Drug Use History: None Reported - Past Family History Mother Family Medical History: Rheumatoid Arthritis (RA), Thyroid Disorder Father Family Medical History: Cancer Additional Family Medical History / Comment(s): MELANOMA, BONE CANCER. Sister(s) Family Medical History: Cancer Additional Family Medical History / Comment(s): Half sister had breast cancer. Medications and Allergies Home Medications Medication Instructions Recorded Confirmed Type Multivit with Calcium,Iron,Min 1 each PO DAILY 06/19/22 10/08/23 History [Women's Multivitamin] Levothyroxine Sodium 50 mcg PO SUTUTHSA 10/07/23 10/08/23 History Levothyroxine Sodium 100 mcg PO MOWEFR 10/07/23 10/08/23 History Melatonin (Unknown Dose) 1 tab PO HS PRN 10/07/23 10/08/23 History Allergies Allergy/AdvReac Type Severity Reaction Status Date / Time No Known Allergies Allergy Verified 10/08/23 12:47 Surgical - Exam Physical exam: General: Well-developed, well-nourished HEENT: Normocephalic, sclerae nonicteric Abdomen: Nontender, nondistended Extremities: No edema Neuro: Alert and oriented Right chest wall with Port-A-Cath in place Assessment and Plan (1) Breast cancer, left Narrative/Plan: 38-year-old female with left breast cancer. Will proceed with Port-A-Cath removal at this time. Current Visit: No Status: Acute Code(s): C50.912 - MALIGNANT NEOPLASM OF UNSPECIFIED SITE OF LEFT FEMALE BREAST SNOMED Code(s): 650213143
[2023-10-08] MEDS: LIDOCAINE 1% INJ 10MG/ML (20 ML MDV) SQ ONE ×2 (13:06→13:13)
[2023-10-08] MEDS: ACETAMINOPHEN TAB 500 MG TAB PO PRN (13:08)
[2023-10-08] MEDS: DEXAMETHASONE SOD PHOSPHATE 4 MG/ML 1 ML VIAL IV ONE (13:08)
[2023-10-08] MEDS: ONDANSETRON 4 MG/2 ML VIAL IVP ONE (13:08)
[2023-10-08] MEDS ORDERED: MIDAZOLAM 2 MG/2 ML VIAL ONE (13:13)
[2023-10-08] MEDS ORDERED: PROPOFOL 10 MG/ML 20 ML VIAL IV ONE (13:13)
[2023-10-08] MEDS ORDERED: fentaNYL (PF) 50 MCG/ML 2 ML AMP ONE (13:13)
[2023-10-08] MEDS ORDERED: NALOXONE 0.4 MG/ML 1 ML VIAL IV PRN (13:42)
--- NOTE | 2023-10-08 13:43 | P.OP ---
Date of Procedure: 10/08/23 Procedure(s) Performed: PREOPERATIVE DIAGNOSIS: Breast cancer POSTOPERATIVE DIAGNOSIS: Same PROCEDURE: Port-A-Cath removal SURGEON: Leigh EBL: Minimal ANESTHESIA: Sedation COMPLICATIONS: None OPERATIVE PROCEDURE: Patient was placed in the supine position. The patient was sedated per anesthesia that time. The chest was prepped and draped in the usual sterile fashion. The skin was localized with Marcaine solution. The previous incision was re-incised using a scalpel. The port was easily excised using accommodation of blunt dissection sharp dissection and electrocautery. The subcutaneous tissues were reapproximated using 3-0 Vicryl sutures. The skin was reapproximated using 4-0 Monocryl sutures. Skin glue was then applied. DISPOSITION: Stable to recovery room
[2023-10-08 14:06] VITALS: RESP 16; TEMP 98
[2023-10-08 14:36] VITALS: BP 109/67; PULSE 58
== END 2023-10-08 14:29 | disposition home or self-care (01) ==
LOC: OR 12:23
PROVIDERS: ATTEND Surgery
DX: Z45.2 Encounter for adjustment and management of vascular access device (principal); E07.9 Disorder of thyroid, unspecified; Z87.891 Personal history of nicotine dependence; Z85.3 Personal history of malignant neoplasm of breast
CPT/HCPCS: 81025; 36590; J2250; J1100; J2405; J2001; J3010; J2704